=== PATIENT | male | born 1930 | race Caucasian/White ===

== ENCOUNTER 2017-06-20 03:11 | Observation (INO) ==
[2017-06-20] MEDS ORDERED: LACTATED RINGERS 1,000 ML IV ONE (03:22)
[2017-06-20] MEDS ORDERED: AMOXICILLIN/POTASSIUM CLAV 875 MG TABLET PO ONE (05:08)
--- NOTE | 2017-06-20 05:10 | Emergency Department Note ---
General Adult HPI - General Chief complaint: Bleeding Other Stated complaint: bloody emesis Time Seen by Provider: 06/20/17 05:05 Source: patient Mode of arrival: ambulatory Limitations: no limitations - History of Present Illness HPI Narrative: This patient was in bed and vomiting a slightly bloody emesis and thinks she may have aspirated. He was brought in the emergency room by ambulance and is doing fairly well but he does have aspiration on his chest x-ray and O2 saturations in the mid 80s off oxygen. He has had no more vomiting here in the emergency room - Related Data Home Medications Medication Instructions Recorded Confirmed cholecalciferol (vitamin D3) 1,000 2,000 unit PO DAILY tab 09/03/14 06/12/17 unit tablet ferrous sulfate ER 325 mg (65 mg 325 mg PO DAILY cap 09/03/14 06/12/17 iron) capsule,extended release multivitamin tablet 1 tab PO QDAY tab 09/03/14 06/12/17 bisacodyl 5 mg tablet,delayed 5 mg PO QHS 03/04/15 06/12/17 release Sennosides/Docusate Sodium [Eql 1 each PO DAILYP PRN 11/27/15 06/12/17 Stool Softener-Stim Lax Tb] aspirin 81 mg tablet,delayed 81 mg PO QDAY 03/06/17 06/12/17 release Previous Rx's Medication Instructions Recorded insulin glargine (U-100) 100 See Label Instructions SUB-Q QDAY 10/05/16 unit/mL subcutaneous solution #10 ml insulin lispro (U-100) 100 unit/mL 5 unit SUB-Q TID #3 ml 10/05/16 subcutaneous cartridge blood sugar diagnostic strips See Dose Instructions .ROUTE 12/19/16 .MEDSUPPLY #100 each blood-glucose meter See Dose Instructions .ROUTE 12/19/16 .MEDSUPPLY #1 each levothyroxine 50 mcg tablet 50 mcg PO QDAY #90 tab 02/25/17 carvedilol 6.25 mg tablet 6.25 mg PO BID 90 Days #180 tab 03/06/17 gabapentin 300 mg capsule 300 mg PO TID 90 Days #270 cap 03/06/17 tramadol 50 mg tablet 50 mg PO QID #360 tab 04/16/17 pravastatin 10 mg tablet 10 mg PO QDAY #90 tab 05/07/17 Amoxicillin/Potassium Clav 875 mg PO Q12H #14 tab 06/20/17 [Augmentin] Allergies Allergy/AdvReac Type Severity Reaction Status Date / Time Sulfa (Sulfonamide AdvReac Intermediate Gastrointestinal Verified 06/20/17 03:18 Antibiotics) Upset Review of Systems All systems ED: reviewed and negative except as stated. Past Medical History - Past Medical History [facility] Narrative: Medical History Fever of unknown origin (Acute) Bacteremia due to Gram-negative bacteria (Acute) Cholelithiasis and cholecystitis without obstruction (Resolved) Oral abscess (Chronic) Aphthous ulcer (Chronic) Vitamin D deficiency (Chronic) Peripheral neuropathy (Chronic) History of peptic ulcer (Chronic) Mononeuritis (Chronic) Mononeuritis lower limb (Chronic) Lumbago (Chronic) Ischemic cardiomyopathy (Chronic) Hypothyroidism (acquired) (Chronic) Hypotension (Chronic) Hyperlipidemia (Chronic) Hyperkalemia (Chronic) HTN (hypertension) (Chronic) Gastritis and gastroduodenitis (Chronic) Dysphagia (Chronic) Diabetes mellitus, type II (Chronic) History of colonic polyps (Chronic) CKD (chronic kidney disease), stage II (Chronic) Chronic low back pain (Chronic) CAD (coronary artery disease) (Chronic) 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) Past Surgical History History of coronary artery stent placement (Chronic) History of rhinoplasty (Chronic) History of lumbar surgery (Chronic) History of esophagogastroduodenoscopy (Chronic) History of colonoscopy (Chronic) History of cervical spinal surgery (Chronic) History of cataract surgery (Chronic) History of carpal tunnel release (Chronic) History of coronary artery bypass graft (Chronic) History of laparoscopic cholecystectomy (Acute) Family History Sister Cardiovascular disease Uknown Chronic obstructive pulmonary disease Father Gangrene Mother Gangrene Unknown History of hepatitis C virus infection Unknown Essential hypertension Sister Migraine Mother Osteoarthritis Mother Osteoporosis Medical history: Reports: coronary artery disease, DM Psychiatric history: Reports: no psych history Surgical history ED: Reports: non-contributory - Social History smoking status: Never smoker Alcohol use: Reports: None Drug use: Reports: none Physical Exam Limitations: no limitations General appearance: alert Head: atraumatic Eye: Present: normal appearance ENT: normal exam Neck: Present: normal inspection Chest: Present: normal inspection Respiratory: Present: other (Severe rhonchi in the left side of the lung tran) Cardiovascular: Present: regular rate, normal rhythm, normal heart sounds Abdominal: Present: soft. Absent: distention, tenderness Neurological: Present: alert Psychiatric: Present: normal affect, normal mood Skin: Present: warm, dry, intact Course Vital Signs Temperature 99.3 F H 06/20/17 03:12 Pulse Rate 102 H 06/20/17 03:12 Respiratory Rate 20 06/20/17 03:12 Blood Pressure 149/106 06/20/17 03:12 Pulse Oximetry (%) 99 06/20/17 03:12 Temperature 100.4 F H 06/20/17 06:29 Pulse Rate 68 06/20/17 07:42 Respiratory Rate 19 06/20/17 07:42 Blood Pressure 98/48 06/20/17 07:35 Pulse Oximetry (%) 97 06/20/17 07:42 Medical Decision Making - MDM Narrative Medical decision making narrative: This patient has had aspiration pneumonia on his x-ray. Initially thought would be able to send him home but he was hypoxic off oxygen. He initially got Augmentin 875 mg p.o. and then I gave him Levaquin 750 mg IV. He will be admitted to the hospital. - Lab Data Lab results reviewed: Yes I reviewed the patient's lab results. Result diagrams: 06/20/17 03:36 06/20/17 03:36 Lab Results 06/20/17 06/20/17 06/20/17 Range/Units 03:36 03:36 06:58 WBC 8.1 (4.5-11.0) K/mcL RBC 3.53 L (4.50-5.90) M/mcL Hgb 11.5 L (13.5-16.5) g/dL Hct 34.1 L (41.0-55.0) % MCV 96.6 (80.0-100.0) fL MCH 32.5 (26.0-34.0) pg MCHC 33.7 (31.0-36.0) g/dL RDW 14.2 (11.5-14.5) % Plt Count 178 (140-440) K/mcL MPV 8.6 (7.4-10.4) fL Gran % 85.7 H (38.0-78.0) % Lymph % (Auto) 8.5 L (15.5-49.0) % [place] % (Auto) 3.5 (1.0-12.0) % Eos % (Auto) 2.2 (0.0-7.0) % Baso % (Auto) 0.1 (0.0-2.0) % Gran # 7.0 (1.8-8.0) K/mcL Lymph # (Auto) 0.7 L (1.5-4.8) K/mcL [place] # (Auto) 0.3 (0.1-0.9) K/mcL Eos # (Auto) 0.2 (0.0-0.7) K/mcL Baso # (Auto) 0 (0.0-0.3) K/mcL VBG Lactic Acid 0.8 (0.5-2.2) mmol/L Sodium 136 (133-145) mmol/L Potassium 4.7 (3.3-5.1) mmol/L Chloride 99 (96-108) mmol/L Carbon Dioxide 23 (22-30) mmol/L Anion Gap 14.0 (8-16) BUN 20 (8-23) mg/dl Creatinine 1.2 (0.7-1.2) mg/dl GFR Calculation 54 Glucose 148 H (70-105) mg/dL Calcium 8.9 (8.6-10.4) mg/dl Total Bilirubin 0.6 (0.0-1.0) mg/dL AST 21 (0-37) U/l ALT 17 (0-40) U/l Alkaline Phosphatase 80 (39-117) U/L Total Protein 7.0 (5.9-8.4) gm/dL Albumin 4.1 (3.2-5.2) gm/dL Globulin 2.9 (2.2-3.7) gm/dL Albumin/Globulin Ratio 1.4 (1.0-2.3) - Radiology Data Radiology results reviewed: Yes I reviewed the patient's radiology results. Disposition Pt seen by [facility]MINISTRATOR/PA only: No Clinical Impression: Aspiration pneumonia Disposition: Xfer As Inpt ([facility]) Condition: Good Prescriptions: Amoxicillin/Potassium Clav [Augmentin] 875 mg PO Q12H #14 tab Referrals: David Rodney PA-C [Primary Care Provider] - Time of Disposition: 05:10
[2017-06-20] MEDS ORDERED: ACETAMINOPHEN 325 MG TABLET PO ONE (05:22)
[2017-06-20 05:51] LABS: Basophils # (Auto) 0 K/mcL (0.0-0.3); Basophils % (Auto) 0.1 % (0.0-2.0); Eosinophils # (Auto) 0.2 K/mcL (0.0-0.7); Eosinophils % (Auto) 2.2 % (0.0-7.0); Granulocytes % (Auto) 85.7 % (38.0-78.0); Lymphocytes # (Auto) 0.7 K/mcL (1.5-4.8); Lymphocytes % (Auto) 8.5 % (15.5-49.0); Mean Cell Volume 96.6 fL (80.0-100.0); Mean Corpuscular HGB Conc 33.7 g/dL (31.0-36.0); Mean Corpuscular Hemoglobin 32.5 pg (26.0-34.0); Monocytes # (Auto) 0.3 K/mcL (0.1-0.9); Monocytes % (Auto) 3.5 % (1.0-12.0); Platelet Count 178 K/mcL (140-440); RBC 3.53 M/mcL (4.50-5.90); Red Cell Distribution Width 14.2 % (11.5-14.5)
[2017-06-20 05:52] LABS: ALT/SGPT 17 U/l (0-40); Albumin 4.1 gm/dL (3.2-5.2); Albumin/Globulin Ratio 1.4 (1.0-2.3); Alkaline Phosphatase 80 U/L (39-117); Blood Urea Nitrogen 20 mg/dl (8-23)
--- NOTE | 2017-06-20 06:06 | XRay Report ---
CLINICAL INFORMATION: Shortness of breath and cough COMPARISON: 11/26/2015 FINDINGS: Moderate cardiomegaly is unchanged. Sternotomy changes again noted. Mediastinum and pulmonary vessels appear normal. Moderate patchy bibasilar infiltrates have developed. Tiny bilateral pleural effusions noted IMPRESSION: Moderate patchy bibasilar infiltrates and tiny bilateral pleural effusions suspicious for aspiration Moderate stable cardiomegaly - no evidence CHF Interpreted and Authenticated by: Dony Reagan 06/20/17
[2017-06-20] MEDS ORDERED: LEVOFLOXACIN 750 MG/150 ML BAG IV ONE (06:40)
[2017-06-20] MEDS ORDERED: 0.9 % SODIUM CHLORIDE 1,000 ML IV ONE (08:05)
[2017-06-20] MEDS ORDERED: ONDANSETRON 4 MG/2 ML VIAL IV PRN (09:41)
[2017-06-20] MEDS: PIPERACILLIN SODIUM/TAZOBACTAM 2.25 GM in DEXTROSE 5% IN WATER 50 ML IV SCH ×3 (10:00→18:16)
[2017-06-20] MEDS ORDERED: DEXTROSE 50% 50 ML VIAL IV PRN (10:53)
[2017-06-20] MEDS ORDERED: DEXTROSE 31 GM ORAL.SUSP PO PRN (10:53)
[2017-06-20] MEDS ORDERED: SENNOSIDES/DOCUSATE SODIUM 1 TAB TABLET PO PRN (11:01)
[2017-06-20] MEDS: INSULIN GLARGINE, HUMAN 1 UNIT/0.01 ML SQ SCH ×2 (11:14→23:29)
[2017-06-20] MEDS: METOCLOPRAMIDE 10 MG TABLET PO SCH ×2 (11:14→17:41)
[2017-06-20] MEDS: INSULIN LISPRO 1 UNIT/0.01 ML UNIT SQ SCH ×3 (11:15→20:53)
[2017-06-20] MEDS: GABAPENTIN 300 MG CAPSULE PO SCH ×2 (14:39→20:49)
[2017-06-20] MEDS: 0.9 % SODIUM CHLORIDE 10 ML SYRINGE IV SCH (14:40)
[2017-06-20] MEDS: traMADol 50 MG TABLET PO PRN (14:46)
[2017-06-20] MEDS: CARVEDILOL 6.25 MG TABLET PO SCH (17:41)
--- NOTE | 2017-06-20 20:43 | Internal Med History&Physical ---
Medical - H&P: HPI Patient information: Note initiated : 06/20/17 at 8:33 pm Service Date, if different from initiated Date: [] Patient: Goyo Roca 86 y/o M admitted on 06/20/17 for Bloody Emesis. History of present illness: Mr. Roca is a 86 year old M who presented by way of EMS after he had a large emesis early this morning during awakening while still in supine position. Patient denies any prodromes. Currently, feels fine, denies any coughing, SOB or nausea. He is otherwise in good health. ED: Patient was diagnosed with aspiration pneumonia and was going to be discharged home on Augmentin, but O2 sats on RA was around 88% only. All systems: reviewed and no additional remarkable complaints except as stated ( as stated in HPI) Medical - H&P: PMH Medical history: Medical History Fever of unknown origin (Acute) Bacteremia due to Gram-negative bacteria (Acute) Cholelithiasis and cholecystitis without obstruction (Resolved) Oral abscess (Chronic) Aphthous ulcer (Chronic) Vitamin D deficiency (Chronic) Peripheral neuropathy (Chronic) History of peptic ulcer (Chronic) Mononeuritis (Chronic) Mononeuritis lower limb (Chronic) Lumbago (Chronic) Ischemic cardiomyopathy (Chronic) Hypothyroidism (acquired) (Chronic) Hypotension (Chronic) Hyperlipidemia (Chronic) Hyperkalemia (Chronic) HTN (hypertension) (Chronic) Gastritis and gastroduodenitis (Chronic) Dysphagia (Chronic) Diabetes mellitus, type II (Chronic) History of colonic polyps (Chronic) CKD (chronic kidney disease), stage II (Chronic) Chronic low back pain (Chronic) CAD (coronary artery disease) (Chronic) 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 Has 6 children Functional capacity: independent ambulation Smoking status: Never smoker Drug use: none Alcohol use: none Medical - H&P: Meds Home Medications Medication Instructions Recorded Confirmed Type cholecalciferol (vitamin D3) 1,000 2,000 unit PO DAILY tab 09/03/14 06/20/17 History unit tablet ferrous sulfate ER 325 mg (65 mg 325 mg PO DAILY cap 09/03/14 06/20/17 History iron) capsule,extended release multivitamin tablet 1 tab PO QDAY tab 09/03/14 06/20/17 History bisacodyl 5 mg tablet,delayed 5 mg PO QHS 03/04/15 06/20/17 History release Sennosides/Docusate Sodium [Eql 1 each PO DAILYP PRN 11/27/15 06/20/17 History Stool Softener-Stim Lax Tb] insulin glargine (U-100) 100 See Label Instructions SUB-Q QDAY 10/05/16 Rx unit/mL subcutaneous solution #10 ml levothyroxine 50 mcg tablet 50 mcg PO QDAY #90 tab 02/25/17 06/20/17 Rx aspirin 81 mg tablet,delayed 81 mg PO QDAY 03/06/17 06/20/17 History release carvedilol 6.25 mg tablet 6.25 mg PO BID 90 Days #180 tab 03/06/17 06/20/17 Rx gabapentin 300 mg capsule 300 mg PO TID 90 Days #270 cap 03/06/17 06/20/17 Rx tramadol 50 mg tablet 50 mg PO QID #360 tab 04/16/17 06/20/17 Rx pravastatin 10 mg tablet 10 mg PO QDAY #90 tab 05/07/17 06/20/17 Rx Amoxicillin/Potassium Clav 875 mg PO Q12H #14 tab 06/20/17 Rx [Augmentin] insulin lispro 100 unit/mL See Protocol SUB-Q TID 06/20/17 06/20/17 History subcutaneous cartridge Allergies Allergy/AdvReac Type Severity Reaction Status Date / Time Sulfa (Sulfonamide AdvReac Intermediate Gastrointestinal Verified 06/20/17 03:18 Antibiotics) Upset Medical - H&P: Exam - Constitutional Vitals: Temp Pulse Resp BP Pulse Ox 98.7 F 72 18 106/59 98 06/20/17 19:53 06/20/17 19:53 06/20/17 19:53 06/20/17 19:53 06/20/17 19:53 General appearance: average body habitus - Head Head exam: Present: normal inspection - Respiratory Respiratory exam: Present: normal respiratory exam - Cardiovascular Cardiovascular exam: Present: normal rate and rhythm - GI/Abdominal GI/Abdominal exam: Present: normal bowel sounds, soft - Extremities Exam Extremities exam: Present: normal inspection Medical - H&P: Reslt - Labs CBC & Chem 7: 06/20/17 03:36 06/20/17 03:36 Labs: Short CBC 06/20/17 Range/Units 03:36 WBC 8.1 (4.5-11.0) K/mcL Hgb 11.5 L (13.5-16.5) g/dL Hct 34.1 L (41.0-55.0) % Plt Count 178 (140-440) K/mcL BMP 06/20/17 03:36 Sodium 136 Potassium 4.7 Chloride 99 Carbon Dioxide 23 BUN 20 Creatinine 1.2 Glucose 148 H Calcium 8.9 Liver Function 06/20/17 Range/Units 03:36 Total Bilirubin 0.6 (0.0-1.0) mg/dL AST 21 (0-37) U/l ALT 17 (0-40) U/l Alkaline Phosphatase 80 (39-117) U/L Albumin 4.1 (3.2-5.2) gm/dL Medical - H&P: A/P - Narrative A/P Narrative: 86-year-old admitted with following problems: + Hypoxia, probably due to aspiration pneumonitis + Bilateral infiltrates, dd aspiration pneumonia Empiric treatment started with Zosyn + Diabetes mellitus Continue insulin regimen + Gastroparesis With recurrent symptoms will start trial with reglan + CAD Continue carvedilol, statin DVT prophylaxis: ambulation Code status: FULL
[2017-06-20] MEDS ORDERED: SIMVASTATIN 10 MG TABLET PO SCH (21:00)
[2017-06-20] MEDS ORDERED: BISACODYL 5 MG TABLET PO SCH (21:00)
[2017-06-21] MEDS: PIPERACILLIN SODIUM/TAZOBACTAM 2.25 GM in DEXTROSE 5% IN WATER 50 ML IV SCH ×3 (00:30→12:19)
[2017-06-21] MEDS: 0.9 % SODIUM CHLORIDE 10 ML SYRINGE IV SCH ×3 (00:30→12:23)
[2017-06-21] MEDS ORDERED: LEVOTHYROXINE 50 MCG TABLET PO SCH (07:30)
[2017-06-21] MEDS: METOCLOPRAMIDE 10 MG TABLET PO SCH ×2 (07:39→11:21)
[2017-06-21] MEDS: INSULIN LISPRO 1 UNIT/0.01 ML UNIT SQ SCH ×2 (07:42→11:55)
[2017-06-21] MEDS ORDERED: FERROUS SULFATE 325 MG TABLET PO SCH (08:00)
[2017-06-21] MEDS: CARVEDILOL 6.25 MG TABLET PO SCH (08:26)
[2017-06-21] MEDS: INSULIN GLARGINE, HUMAN 1 UNIT/0.01 ML SQ SCH (08:26)
[2017-06-21] MEDS: GABAPENTIN 300 MG CAPSULE PO SCH ×2 (08:26→16:40)
[2017-06-21] MEDS: traMADol 50 MG TABLET PO PRN (08:32)
[2017-06-21] MEDS ORDERED: ASPIRIN 81 MG TAB.CHEW PO SCH (09:00)
[2017-06-21] MEDS ORDERED: VITAMIN D3 1,000 UNIT TABLET PO SCH (09:00)
--- NOTE | 2017-06-21 11:16 | Discharge Summary ---
Medical - DS: Prov Patient information: Note initiated : 06/21/17 at 11:01 am Service Date, if different from initiated Date: [] Patient: Goyo Roca 86 y/o M admitted on 06/20/17 for Bloody Emesis/ Pneumonia. Date of admission: 06/20/17 09:32 Discharge date: 06/21/17 Primary care physician: David Rodney Consults: 06/20/17 07:39 Consult to Physician [CONS] Stat Comment: Consulting Provider: Jennifer Lee Reason For Exam: Physician to Consult Medical - DS: Meds - Discharge Medications Prescriptions: Amoxicillin/Potassium Clav [Augmentin] 875 mg PO Q12H #14 tab Active and Home Medications: Home Medications cholecalciferol (vitamin D3) 1,000 unit tablet 2,000 unit PO DAILY tab [History Confirmed 06/20/17 Last Taken 06/19/17 07:00] ferrous sulfate ER 325 mg (65 mg iron) capsule,extended release 325 mg PO DAILY cap 09/03/14 [History Confirmed 06/20/17 Last Taken 06/19/17 07:00] multivitamin tablet 1 tab PO QDAY tab 09/03/14 [History Confirmed 06/20/17 Last Taken 06/19/17 07:00] bisacodyl 5 mg tablet,delayed release 5 mg PO QHS 03/04/15 [History Confirmed Last Taken 06/19/17 20:00] Sennosides/Docusate Sodium [Eql Stool Softener-Stim Lax Tb] 1 each PO DAILYP PRN 11/27/15 [History Confirmed 06/20/17 Last Taken 06/19/17 07:00] insulin glargine (U-100) 100 unit/mL subcutaneous solution See Label Instructions SUB-Q QDAY #10 ml 10/05/16 [Rx Confirmed 06/20/17 Last Taken 21:00] levothyroxine 50 mcg tablet 50 mcg PO QDAY #90 tab 02/25/17 [Rx Confirmed Last Taken 06/19/17 07:00] aspirin 81 mg tablet,delayed release 81 mg PO QDAY 03/06/17 [History Confirmed 06/20/17 Last Taken 06/19/17 07:00] carvedilol 6.25 mg tablet 6.25 mg PO BID 90 Days #180 tab 03/06/17 [Rx Confirmed 06/20/17 Last Taken 06/19/17 07:00] gabapentin 300 mg capsule 300 mg PO TID 90 Days #270 cap 03/06/17 [Rx Confirmed 06/20/17 Last Taken 06/19/17 20:00] tramadol 50 mg tablet 50 mg PO QID #360 tab 04/16/17 [Rx Confirmed 06/20/17 Last Taken 06/19/17 20:00] pravastatin 10 mg tablet 10 mg PO QDAY #90 tab 05/07/17 [Rx Confirmed 06/20/17 Last Taken 06/19/17 07:00] Amoxicillin/Potassium Clav [Augmentin] 875 mg PO Q12H #14 tab 06/20/17 [Rx Last Taken Unknown] insulin lispro 100 unit/mL subcutaneous cartridge See Protocol SUB-Q TID [History Confirmed 06/20/17 Last Taken 06/19/17 20:00] Medical - DS: Hosp Hospital course: Mr. Roca is a 86 year old M who presented by way of EMS after he had a large emesis early this morning during awakening while still in supine position. Patient denies any prodromes. Currently, feels fine, denies any coughing, SOB or nausea. He is otherwise in good health. ED: Patient was diagnosed with aspiration pneumonia and was going to be discharged home on Augmentin, but O2 sats on RA was around 88% only. Hospital Course: Patient has remained afebrile during his hospital stay. He has had no nausea, or emesis, coughing or pleuritic pain. O2 sats on room air have remained well above 90% for the last 24 hours. He will be discharged home on Augmentin for presumed aspiration pneumonia. No changes were made in his home meds. Discharge diagnosis: Aspiration pneumonia Secondary discharge diagnosis: Vitamin D deficiency (Chronic) Peripheral neuropathy (Chronic) History of peptic ulcer (Chronic) Mononeuritis (Chronic) Mononeuritis lower limb (Chronic) Lumbago (Chronic) Ischemic cardiomyopathy (Chronic) Hypothyroidism (acquired) (Chronic) Hypotension (Chronic) Hyperlipidemia (Chronic) Hyperkalemia (Chronic) HTN (hypertension) (Chronic) Gastritis and gastroduodenitis (Chronic) Dysphagia (Chronic) Diabetes mellitus, type II (Chronic) History of colonic polyps (Chronic) CKD (chronic kidney disease), stage II (Chronic) Chronic low back pain (Chronic) CAD (coronary artery disease) (Chronic) 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) Reason for admission: Hypoxia, aspiration pneumonia Pertinent studies/significant findings: CXR: IMPRESSION: Moderate patchy bibasilar infiltrates and tiny bilateral pleural effusions suspicious for aspiration Moderate stable cardiomegaly - no evidence CHF - Time Spent with Patient Total time spent providing and/or coordinating discharge services: Less than 30 minutes Medical - DS: Exam - Constitutional Vitals: Vital Signs Temp Pulse Resp BP Pulse Ox 06/21/17 10:56 98.1 F 16 126/86 98 06/21/17 07:53 16 97 06/21/17 07:42 16 97 06/21/17 06:31 98.9 F 18 118/57 97 06/21/17 04:00 97.6 F 76 18 113/74 96 06/21/17 00:00 98.9 F 64 18 126/56 99 06/20/17 19:53 98.7 F 72 18 106/59 98 06/20/17 16:00 98.0 F 72 18 105/57 97 06/20/17 12:00 98.3 F 70 18 99/52 97 Intake and Output 06/20/17 06/21/17 06/21/17 21:59 05:59 13:59 Intake Total 100 / 100 450 / 450 120 / 120 Balance 100 / 100 450 / 450 120 / 120 Intake: IV 100 / 100 50 / 50 Zosyn 2.25 gm In Dextrose 5% in 100 / 100 50 / 50 Water 50 ml @ 100 mls/hr IV Q6H [facility] Rx#:[id number] Oral 400 / 400 120 / 120 Other: Meal Breakfast Percent of Meal Consumed 75% Feeding Ability Independent # Voids 1 Weight 168 lb Medical - DS: Data Labs on day of discharge: Preliminary micro results at discharge 06/20/17 05:59 Blood Culture - Preliminary Blood 06/20/17 05:49 Blood Culture - Preliminary Blood Medical - DS: A/P - Patient/Caregiver Discharge Instructions Activity: increase activity as tolerated Diet: Consistent Carbohydrate Additional Instructions: NEW MEDICATION IS AUGMENTIN FOR THE LUNG INFECTION. OTHERWISE, CONTINUE HOME MEDS WITHOUT CHANGES. Prescriptions: Amoxicillin/Potassium Clav [Augmentin] 875 mg PO Q12H #14 tab - Follow up Plan Follow up with: David Rodney PA-C [Primary Care Provider] - Disposition: Home, Self-Care Prognosis: Fair Rehab Potential: Good Overall status at discharge: patient is back to baseline
== END 2017-06-21 17:05 | disposition home or self-care (01) ==
LOC: MEDSUR 03:11 → ED 03:11 → MEDSUR 09:30
PROVIDERS: ADMIT Specialist; ATTEND Specialist

== ENCOUNTER 2019-10-29 15:37 | Observation (INO) ==
[2019-10-29] MEDS ORDERED: 0.9 % SODIUM CHLORIDE 1,000 ML IV ONE (15:52)
--- NOTE | 2019-10-29 16:16 | Emergency Department Note ---
HPI General Chief complaint: Blood Sugar Problem Stated complaint: High blood sugar, 261 at 1400 Time Seen by Provider: 10/29/19 15:43 Source: patient and family Mode of arrival: ambulatory Limitations: no limitations History of Present Illness HPI Narrative: Narrative: Patient presents emergency department for elevated blood sugar. He was in the 260s at home. He did take insulin prior to coming to the emergency department. He has had diarrhea today. No abdominal pain. No fever. No vomiting. No other complaints. Related Data Home Medications Medication Instructions Recorded Confirmed cholecalciferol (vitamin D3) 25 2,000 unit PO DAILY tab 09/03/14 10/26/19 mcg (1,000 unit) tablet ferrous sulfate 325 mg (65 mg 325 mg PO DAILY cap 09/03/14 10/26/19 iron) capsule,extended release multivitamin 1 tab PO QDAY tab 09/03/14 10/26/19 bisacodyl 5 mg tablet,delayed 5 mg PO QHS 03/04/15 10/26/19 release sennosides-docusate sodium 1 each PO DAILYP PRN 11/27/15 10/26/19 aspirin 81 mg tablet,delayed 81 mg PO QDAY 03/06/17 10/26/19 release apixaban 5 mg tablet 10 mg PO QDAY tab 06/19/19 10/26/19 carvedilol 6.25 mg tablet 6.25 mg PO BID 06/19/19 10/26/19 gabapentin 300 mg capsule 300 mg PO .unknown cap 06/19/19 10/26/19 tramadol 50 mg tablet 50 mg PO .unknown tab 06/19/19 10/26/19 Previous Rx's Medication Instructions Recorded levothyroxine 50 mcg tablet 50 mcg PO QDAY #90 tab 08/13/17 fluoxetine 20 mg capsule 20 mg PO QAM #90 cap 09/12/17 insulin glargine 100 unit/mL See Rx Instructions SUB-Q QDAY #10 09/12/17 subcutaneous solution ml blood-glucose meter #1 each 10/01/17 pravastatin 10 mg tablet 10 mg PO QDAY #90 tab 10/21/17 insulin lispro 100 unit/mL 4 unit SUB-Q ACHS #300 unit 11/11/17 subcutaneous solution hydrocodone 5 mg-acetaminophen 325 1 tab PO BID PRN #60 tab 11/15/17 mg tablet omeprazole 20 mg PO ACB #30 cap 08/19/18 Allergies Allergy/AdvReac Type Severity Reaction Status Date / Time Sulfa (Sulfonamide AdvReac Intermediate Gastrointestinal Verified 08/19/18 17:26 Antibiotics) Upset Review of Systems ROS ROS Narrative: Narrative: As above, all other system reviewed and negative. 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, lumbosacral region (Chronic) Fall (Acute) Scalp hematoma (Acute) Radial styloid fracture (Acute) Aspiration pneumonia (Acute) Hx laparoscopic cholecystectomy (Chronic) Cirrhosis of liver without ascites (Chronic) History of laparoscopic cholecystectomy (Acute) Fever of unknown origin (Acute) Bacteremia due to Gram-negative bacteria (Acute) Oral abscess (Chronic) Aphthous ulcer (Chronic) History of coronary artery stent placement (Chronic) History of rhinoplasty (Chronic) History of lumbar surgery (Chronic) History of esophagogastroduodenoscopy (Chronic) History of colonoscopy (Chronic) History of cervical spinal surgery (Chronic) History of cataract surgery (Chronic) History of carpal tunnel release (Chronic) History of coronary artery bypass graft (Chronic) Vitamin D deficiency (Chronic) Peripheral neuropathy (Chronic) History of peptic ulcer (Chronic) Mononeuritis (Chronic) Mononeuritis lower limb (Chronic) Lumbago (Chronic) Ischemic cardiomyopathy (Chronic) Hypothyroidism (acquired) (Chronic) Hypotension (Chronic) Hyperlipidemia (Chronic) Hyperkalemia (Chronic) HTN (hypertension) (Chronic) Gastritis and gastroduodenitis (Chronic) Dysphagia (Chronic) Diabetes mellitus, type II (Chronic) History of colonic polyps (Chronic) CKD (chronic kidney disease), stage II (Chronic) Chronic low back pain (Chronic) CAD (coronary artery disease) (Chronic) 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) Medical History 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) Aphthous ulcer (Chronic) Bacteremia due to Gram-negative bacteria (Acute) 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 urinary tract symptoms (Chronic) CAD (coronary artery disease) (Chronic) post CABG 5 vessel bypass Cholelithiasis and cholecystitis without obstruction (Resolved) Chronic low back pain (Chronic) CKD (chronic kidney disease), stage II (Chronic) 08/27/2011 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) Diabetes (Chronic) Diabetes mellitus, type II (Chronic) Dysphagia (Chronic) 06/23/2104-Shani Fever of unknown origin (Acute) Gastritis and gastroduodenitis (Chronic) H/O meningitis (Chronic) H/O sleep apnea (Chronic) 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) History of colonic polyps (Chronic) History of peptic ulcer (Chronic) 05/14/2014 HTN (hypertension) (Chronic) Hypercholesteremia (Chronic) Hyperkalemia (Chronic) Hyperlipidemia (Chronic) Hypotension (Chronic) Hypothyroidism (acquired) (Chronic) Ischemic cardiomyopathy (Chronic) Lumbago (Chronic) Mononeuritis (Chronic) ARM Mononeuritis lower limb (Chronic) neuropathy Oral abscess (Chronic) Peripheral neuropathy (Chronic) Personal history of other diseases of the circulatory system (Chronic) 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 Radiculopathy, 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, 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, lumbosacral region (Chronic) Vitamin D deficiency (Chronic) Surgical History History of carpal tunnel release (Chronic) 04/09/2013 right History of cataract surgery (Chronic) 9024-8046 History of cervical spinal surgery (Chronic) 1976 History of colonoscopy (Chronic) 06/22/2014 dr Mcleod--TA/HP History of coronary artery bypass graft (Chronic) 2000 5 vessel bypass and stent History of coronary artery stent placement (Chronic) 2001 History of esophagogastroduodenoscopy (Chronic) 06/23/2014 -Shani History of laparoscopic cholecystectomy (Acute) 11/26/2015 History of lumbar surgery (Chronic) fusion at two levels History of rhinoplasty (Chronic) 1997 History of surgery (Chronic) 06/11 MBB #1 Bilat L3-S1 w/o sed 06/03/1902/02 LESI #1 L1-2 w/o sed 01-29-1111/02 RFTC, Lumbar, Left w/sed 11-21-1011/02 RFTC, Lumbar on the right w/sed 11-06-1010/02 MBB lumbar w/o sed 10-16-10 Family History Sister Cardiovascular disease Uknown Chronic obstructive pulmonary disease Father Gangrene father at 40 yrs and mother at 81 years of age Mother Gangrene Unknown History of hepatitis C virus infection Unknown Essential hypertension Sister Migraine Mother Osteoarthritis NOS Mother Osteoporosis Social History Smoking Status: Never smoker Alcohol Intake Frequency: does not drink Substance Use: does not use Exam Narrative Narrative: Narrative: Vital signs reviewed, please see nursing documentation General Limitations: no limitations General appearance: alert Head Head: atraumatic, normocephalic and normal inspection Eye Eye: Present normal appearance, PERRL and EOMI ENT ENT: Present normal exam Neck Neck: Present normal inspection Respiratory Respiratory: Absent respiratory distress Extremities Extremities: Present normal inspection Neurological Neurological: Present alert, oriented X3 and CN II-XII intact; Absent motor sensory deficit Psychiatric Psychiatric: Present normal affect Skin Skin: Present warm Course Vital Signs Vital signs: Vital Signs Temperature 97.5 F 10/29/19 15:38 Pulse Rate 82 10/29/19 15:38 Respiratory Rate 18 10/29/19 15:38 Blood Pressure 79/53 10/29/19 15:38 Pulse Oximetry (%) 97 10/29/19 15:38 Temperature 97.5 F 10/29/19 15:38 Pulse Rate 74 10/29/19 18:36 Respiratory Rate 16 10/29/19 18:36 Blood Pressure 119/59 10/29/19 18:36 Pulse Oximetry (%) 99 10/29/19 18:36 MDM MDM Narrative Medical decision making narrative: Narrative: Patient is hydrated with IV flui ds. I spoke with Dr. Swain on-call hospitalist. Case reviewed in detail over the phone. Hospitalist agreed with admission and requested a renal ultrasound be obtained. Taker Off Hemp Fiber reports that patient has thinning to the renal cortex and renal cysts. Discussed findings with patient and family. Their questions were answered. They are agreeable with the plan. Lab Data Result diagrams: 10/29/19 15:53 10/29/19 15:53 Labs: Lab Results 10/29/19 10/29/19 Range/Units 15:53 15:53 WBC 6.6 (4.50-11.00) K/mcL RBC 3.69 L (4.63-6.08) M/mcL Hgb 11.9 L (13.7-17.5) g/dL Hct 35.3 L (40.1-51.0) % MCV 95.7 (80.0-100.0) fL MCH 32.2 (26.0-34.0) pg MCHC 33.7 (31.0-36.0) g/dL RDW 11.5 (11.5-14.5) % Plt Count 237 (140-440) K/mcL MPV 9.9 (7.4-10.4) fL Gran % 54.1 (38.0-78.0) % Lymph % (Auto) 33.0 (15.5-49.0) % [place] % (Auto) 12.2 H (1.0-12.0) % Eos % (Auto) 0.5 (0.0-7.0) % Baso % (Auto) 0.2 (0.0-2.0) % Gran # 3.60 (1.80-8.00) K/mcL Lymph # (Auto) 2.19 (1.50-4.80) K/mcL [place] # (Auto) 0.81 (0.10-0.90) K/mcL Eos # (Auto) 0.03 (0.00-0.70) K/mcL Baso # (Auto) 0.01 (0.00-0.30) K/mcL Sodium 132 L (133-145) mmol/L Potassium 4.1 (3.3-5.1) mmol/L Chloride 98 (96-108) mmol/L Carbon Dioxide 19 L (22-30) mmol/L Anion Gap 15.0 (8-16) BUN 37 H (8-23) mg/dl Creatinine 2.0 H (0.7-1.2) mg/dl GFR Calculation 29 Glucose 174 H (70-105) mg/dL Calcium 9.3 (8.6-10.4) mg/dl Discharge Plan Patient/Caregiver Discharge Instructions Pt seen by P[employer]DERED [employer]AL SUPERVISOR/PA only: No Clinical Impression: Acute renal failure (ARF) Patient Disposition: Xfer As Inpt ([facility]) Follow up with: Jn Guzman MD [Primary Care Provider] - Prescriptions: No Action levothyroxine 50 mcg tablet 50 mcg PO QDAY Qty: 90 RF: 1 (DME) blood-glucose meter [[employer]] misc See Dose Instructions .ROUTE .MEDSUPPLY Qty: 1 RF: 0 pravastatin 10 mg tablet 10 mg PO QDAY Qty: 90 RF: 1 insulin lispro 100 unit/mL solution 4 unit SUB-Q ACHS Qty: 300 RF: 0 hydrocodone-acetaminophen 5-325 mg tablet 1 tab PO BID PRN (Reason: pain) Qty: 60 RF: 0 multivitamin tablet 1 tab PO QDAY RF: 0 cholecalciferol (vitamin D3) 1,000 unit tablet 2,000 unit PO DAILY RF: 0 ferrous sulfate 325 mg (65 mg iron) capsule, extended release 325 mg PO DAILY RF: 0 Eliquis 5 mg tablet 10 mg PO QDAY RF: 0 gabapentin 300 mg capsule 300 mg PO .unknown RF: 0 tramadol 50 mg tablet 50 mg PO .unknown RF: 0 carvedilol 6.25 mg tablet 6.25 mg PO BID RF: 0 bisacodyl 5 mg tablet,delayed release (DR/EC) 5 mg PO QHS RF: 0 aspirin [Adult Low Dose Aspirin] 81 mg tablet,delayed release (DR/EC) 81 mg PO QDAY RF: 0 fluoxetine 20 mg capsule 20 mg PO QAM Qty: 90 RF: 1 insulin glargine 100 unit/mL solution See Rx Instructions SUB-Q QDAY Qty: 10 RF: 1 sennosides-docusate sodium 1 EACH tablet 1 each PO DAILYP PRN (Reason: Constipation) RF: 0 omeprazole 20 MG capsule 20 mg PO ACB Qty: 30 RF: 0
[2019-10-29 17:04] LABS: Basophils # (Auto) 0.01 K/mcL (0.00-0.30); Basophils % (Auto) 0.2 % (0.0-2.0); Eosinophils # (Auto) 0.03 K/mcL (0.00-0.70); Eosinophils % (Auto) 0.5 % (0.0-7.0); Granulocytes % (Auto) 54.1 % (38.0-78.0); Hematocrit 35.3 % (40.1-51.0); Hemoglobin 11.9 g/dL (13.7-17.5); Lymphocytes # (Auto) 2.19 K/mcL (1.50-4.80); Mean Cell Volume 95.7 fL (80.0-100.0); Mean Corpuscular HGB Conc 33.7 g/dL (31.0-36.0); Mean Platelet Volume 9.9 fL (7.4-10.4); Monocytes # (Auto) 0.81 K/mcL (0.10-0.90); Monocytes % (Auto) 12.2 % (1.0-12.0); Platelet Count 237 K/mcL (140-440); RBC 3.69 M/mcL (4.63-6.08); Red Cell Distribution Width 11.5 % (11.5-14.5); WBC 6.6 K/mcL (4.50-11.00)
[2019-10-29 17:10] LABS: Blood Urea Nitrogen 37 mg/dl (8-23); Calcium 9.3 mg/dl (8.6-10.4); Carbon Dioxide 19 mmol/L (22-30); Chloride 98 mmol/L (96-108); Glomerular Filtration Rate 29; Glucose 174 mg/dL (70-105)
[2019-10-29] MEDS ORDERED: 0.9 % SODIUM CHLORIDE 500 ML IV ONE (18:11)
--- NOTE | 2019-10-29 18:31 | Internal Med History&Physical ---
HPI History of Present Illness Patient information: Note initiated : 10/29/19 at 6:31 pm Service Date, if different from initiated Date: [] Patient: Goyo Roca a 89 y/o M admitted on for High blood sugar, 261 at 1400. Chief Complaint: Diarrhea, elevated blood sugars and weakness History of present illness: Mr. Roca is a 89 year old M with a history of DM type II/ischemic cardiomyopathy/CKD stage II who presents to the ER due to elevated blood sugars and diarrhea. Work-up was consistent with elevated creatinine at 2. Patient received crystalloids. Blood sugars improved after patient self-administered insulin. Hospital service was consulted for admission in light of acute renal failure. Renal ultrasound was ordered, UA pending At the time evaluation patient is alert and oriented. His sick contacts of leg symptoms. Denies NSAID intake. Endorses history as above. Denies chest pain, palpitation, shortness of breath fever chills or headache. Review of systems 10 point review system was performed and is negative except for ones cussed above [facility] Medical History 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) Aphthous ulcer (Chronic) Bacteremia due to Gram-negative bacteria (Acute) 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 urinary tract symptoms (Chronic) CAD (coronary artery disease) (Chronic) post CABG 5 vessel bypass Cholelithiasis and cholecystitis without obstruction (Resolved) Chronic low back pain (Chronic) CKD (chronic kidney disease), stage II (Chronic) 08/27/2011 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) Diabetes (Chronic) Diabetes mellitus, type II (Chronic) Dysphagia (Chronic) 06/23/2104-[facility]cleod Fever of unknown origin (Acute) Gastritis and gastroduodenitis (Chronic) H/O meningitis (Chronic) H/O sleep apnea (Chronic) 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) History of colonic polyps (Chronic) History of peptic ulcer (Chronic) 05/14/2014 HTN (hypertension) (Chronic) Hypercholesteremia (Chronic) Hyperkalemia (Chronic) Hyperlipidemia (Chronic) Hypotension (Chronic) Hypothyroidism (acquired) (Chronic) Ischemic cardiomyopathy (Chronic) Lumbago (Chronic) Mononeuritis (Chronic) ARM Mononeuritis lower limb (Chronic) neuropathy Oral abscess (Chronic) Peripheral neuropathy (Chronic) Personal history of other diseases of the circulatory system (Chronic) 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 Radiculopathy, 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, 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, lumbosacral region (Chronic) Vitamin D deficiency (Chronic) Surgical History History of carpal tunnel release (Chronic) 04/09/2013 right History of cataract surgery (Chronic) 3314-4763 History of cervical spinal surgery (Chronic) 1975 History of colonoscopy (Chronic) 06/22/2014 dr Mcleod--TA/HP History of coronary artery bypass graft (Chronic) 2000 5 vessel bypass and stent History of coronary artery stent placement (Chronic) 2001 History of esophagogastroduodenoscopy (Chronic) 06/23/2014 -Shani History of laparoscopic cholecystectomy (Acute) 11/26/2015 History of lumbar surgery (Chronic) fusion at two levels History of rhinoplasty (Chronic) 1997 History of surgery (Chronic) 06/11 MBB #1 Bilat L3-S1 w/o sed 06/03/1902/02 LESI #1 L1-2 w/o sed 01-29-1111/02 RFTC, Lumbar, Left w/sed 11-21-1011/02 RFTC, Lumbar on the right w/sed 11-06-1010/02 MBB lumbar w/o sed 10-16-10 Family History Sister Cardiovascular disease Uknown Chronic obstructive pulmonary disease Father Gangrene father at 40 yrs and mother at 81 years of age Mother Gangrene Unknown History of hepatitis C virus infection Unknown Essential hypertension Sister Migraine Mother Osteoarthritis NOS Mother Osteoporosis Social History (Updated 09/12/17 @ 11:55 by David Rodney PA-C) marital status: education level: college occupational status: retired occupation: [employer] other: 6 CHILDREN AND 1 GRANDCHILD smoking status: Never smoker alcohol intake frequency: does not drink substance use type: does not use MEDS/ALLERGIES Home Medications and Allergies Home Medications Medication Instructions Recorded Confirmed Type cholecalciferol (vitamin D3) 25 2,000 unit PO DAILY tab 09/03/14 10/26/19 History mcg (1,000 unit) tablet ferrous sulfate 325 mg (65 mg 325 mg PO DAILY cap 09/03/14 10/26/19 History iron) capsule,extended release multivitamin 1 tab PO QDAY tab 09/03/14 10/26/19 History bisacodyl 5 mg tablet,delayed 5 mg PO QHS 03/04/15 10/26/19 History release sennosides-docusate sodium 1 each PO DAILYP PRN 11/27/15 10/26/19 History aspirin 81 mg tablet,delayed 81 mg PO QDAY 03/06/17 10/26/19 History release levothyroxine 50 mcg tablet 50 mcg PO QDAY #90 tab 08/13/17 10/26/19 Rx fluoxetine 20 mg capsule 20 mg PO QAM #90 cap 09/12/17 10/26/19 Rx insulin glargine 100 unit/mL See Rx Instructions SUB-Q QDAY #10 09/12/17 10/26/19 Rx subcutaneous solution ml blood-glucose meter #1 each 10/01/17 10/26/19 Rx pravastatin 10 mg tablet 10 mg PO QDAY #90 tab 10/21/17 10/26/19 Rx insulin lispro 100 unit/mL 4 unit SUB-Q ACHS #300 unit 11/11/17 10/26/19 Rx subcutaneous solution hydrocodone 5 mg-acetaminophen 325 1 tab PO BID PRN #60 tab 11/15/17 10/26/19 Rx mg tablet omeprazole 20 mg PO ACB #30 cap 08/19/18 10/26/19 Rx apixaban 5 mg tablet 10 mg PO QDAY tab 06/19/19 10/26/19 History carvedilol 6.25 mg tablet 6.25 mg PO BID 06/19/19 10/26/19 History gabapentin 300 mg capsule 300 mg PO .unknown cap 06/19/19 10/26/19 History tramadol 50 mg tablet 50 mg PO .unknown tab 06/19/19 10/26/19 History Allergies Allergy/AdvReac Type Severity Reaction Status Date / Time Sulfa (Sulfonamide AdvReac Intermediate Gastrointestinal Verified 08/19/18 17:26 Antibiotics) Upset EXAM Constitutional Vitals: Alert oriented Head normocephalic Oral cavity moist No ear nose discharge Eye movement symmetrical Neck supple no lymphadenopathy S1-S2 occasionally irregular Nonlabored breathing Nondistended nontender abdomen Lower extremity no cyanosis clubbing or joint swelling Skin no suspicious lesion Psych anxious but alert cooperative Neuro normal higher function Temp Pulse Resp BP Pulse Ox 97.5 F 67 18 113/61 99 10/29/19 15:38 10/29/19 17:55 10/29/19 15:38 10/29/19 17:55 10/29/19 17:55 DATA Data Completed and Pending Labs on day of discharge: Labs from last 24 hours 10/29/19 10/29/19 15:53 15:53 WBC 6.6 RBC 3.69 L Hgb 11.9 L Hct 35.3 L MCV 95.7 MCH 32.2 MCHC 33.7 RDW 11.5 Plt Count 237 MPV 9.9 Gran % 54.1 Lymph % (Auto) 33.0 [place] % (Auto) 12.2 H Eos % (Auto) 0.5 Baso % (Auto) 0.2 Gran # 3.60 Lymph # (Auto) 2.19 [place] # (Auto) 0.81 Eos # (Auto) 0.03 Baso # (Auto) 0.01 Sodium 132 L Potassium 4.1 Chloride 98 Carbon Dioxide 19 L Anion Gap 15.0 BUN 37 H Creatinine 2.0 H GFR Calculation 29 Glucose 174 H Calcium 9.3 A/P Narrative A/P Narrative: * Acute renal failure likely secondary to volume depletion/prerenal. Start crystalloids and monitor renal function. Avoid nephrotoxins. Renal ultrasound/UA * Diarrhea check send stool studies. Crystalloid/supportive management * History of DM type II continue basal prandial insulin/CCD * Ischemic cardiomyopathy continue Coreg/aspirin/statin * Anxiety disorder continue fluoxetine * Neuropathy continue gabapentin * GERD continue PPI * hypothyroidism continue thyroxine * Chronic pain on hydrocodone/tramadol * Prophylaxis on anticoagulation Plan * Observation admission * Renal ultrasound/UA * Crystalloids * Stool studies * Pre-existing medical condition management as above Full code Time Spent With Patient Time: Total time spent is greater than 50% in coordination of care (as doc umented) at patient's floor/unit and/or counseling patient:
[2019-10-29] MEDS ORDERED: BISACODYL 10 MG SUPP.RECT PR PRN (20:26)
[2019-10-29] MEDS ORDERED: ACETAMINOPHEN 325 MG TABLET PO PRN (20:26)
[2019-10-29] MEDS ORDERED: DEXTROSE 31 GM ORAL.SUSP PO PRN (20:26)
[2019-10-29] MEDS ORDERED: DEXTROSE 50% 50 ML VIAL IV PRN (20:26)
[2019-10-29] MEDS ORDERED: ONDANSETRON 4 MG/2 ML VIAL IV PRN (20:26)
[2019-10-29] MEDS ORDERED: ONDANSETRON 4 MG ODT TABLET SL PRN (20:26)
[2019-10-29] MEDS ORDERED: POTASSIUM CHLORIDE 20 MEQ PACKET PO PRN (20:26)
[2019-10-29] MEDS ORDERED: MELATONIN 3 MG TABLET PO PRN (20:26)
[2019-10-29] MEDS ORDERED: hydrALAZINE 20 MG/ML VIAL IV PRN (20:26)
[2019-10-29] MEDS ORDERED: MAGNESIUM SULFATE 2 GM/50 ML BAG IV PRN (20:26)
[2019-10-29] MEDS ORDERED: ACETAMINOPHEN 650 MG/65 ML BOTTLE IV PRN (20:26)
[2019-10-29] MEDS ORDERED: POLYETHYLENE GLYCOL 3350 17 GM PACKET PO PRN (20:26)
[2019-10-29] MEDS: 0.9 % SODIUM CHLORIDE 1,000 ML IV SCH (20:33)
[2019-10-29] MEDS: 0.9 % SODIUM CHLORIDE 10 ML SYRINGE IV SCH (22:19)
[2019-10-29] MEDS: SENNOSIDES/DOCUSATE SODIUM 1 TAB TABLET PO SCH (22:19)
[2019-10-29] MEDS: DOCUSATE SODIUM 100 MG CAPSULE PO SCH (22:19)
[2019-10-29] MEDS: INSULIN LISPRO 1 UNIT/0.01 ML UNIT SQ SCH (22:27)
--- NOTE | 2019-10-30 02:28 | Ultrasound Report ---
CLINICAL INFORMATION: arf COMPARISON: Abdomen CT 09/11/2005 FINDINGS: Both kidneys are normal in size position and configuration: The right is 9.8 x 4 cm and the left is 9 x 4 cm. Echotexture is elevated bilaterally compatible with medical renal disease. Scattered cysts in both kidneys ranging up to 2.8 cm in the superior left kidney are unchanged. No stone, hydronephrosis or solid lesion. Arterial blood flow is grossly normal on color Doppler to both kidneys. Urinary bladder volume is 131 cc without post void residual. No focal bladder lesions Prostate volume normal dose 15 cc IMPRESSION: Mildly hyperechoic kidneys compatible with medical renal disease Interpreted and Authenticated by: Dony Reagan 10/30/19
[2019-10-30] MEDS: 0.9 % SODIUM CHLORIDE 10 ML SYRINGE IV SCH ×3 (05:50→22:04)
[2019-10-30 06:42] LABS: Hematocrit 30.4 % (40.1-51.0); Hemoglobin 10.4 g/dL (13.7-17.5); Mean Cell Volume 96.8 fL (80.0-100.0); Mean Corpuscular HGB Conc 34.2 g/dL (31.0-36.0); Mean Platelet Volume 9.6 fL (7.4-10.4); Platelet Count 179 K/mcL (140-440); RBC 3.14 M/mcL (4.63-6.08); Red Cell Distribution Width 11.7 % (11.5-14.5)
[2019-10-30 06:50] LABS: ALT/SGPT 31 U/l (0-40); AST/SGOT 22 U/l (0-37); Albumin 3.4 gm/dL (3.2-5.2); Albumin/Globulin Ratio 1.4 (1.0-2.3); Alkaline Phosphatase 75 U/L (39-117); Bilirubin,Direct < 0.2 mg/dL (0.0-0.3); Bilirubin,Total 0.3 mg/dL (0.0-1.0); Blood Urea Nitrogen 32 mg/dl (8-23); Calcium 8.6 mg/dl (8.6-10.4); Carbon Dioxide 20 mmol/L (22-30); Chloride 108 mmol/L (96-108); Globulin 2.4 gm/dL (2.2-3.7); Glomerular Filtration Rate 38; Glucose 120 mg/dL (70-105); Lactate Dehydrogenase 169 U/L (94-250); Phosphorous 3.6 mg/dL (2.7-4.5); Triglycerides 85 mg/dl (<150); Uric Acid 6.4 mg/dL (2.5-8.0)
[2019-10-30 07:49] LABS: Lymphocytes % 36 % (15-49); Monocytes % (Manual) 10 % (1-12); Platelet Estimate NORMAL (NORMAL); RBC Morphology NORMAL (NORMAL); Segmented Neutrophils % 54 % (38-78)
[2019-10-30] MEDS: INSULIN LISPRO 1 UNIT/0.01 ML UNIT SQ SCH ×7 (07:56→21:46)
[2019-10-30] MEDS: DOCUSATE SODIUM 100 MG CAPSULE PO SCH ×2 (08:14→21:45)
[2019-10-30] MEDS ORDERED: BISACODYL 5 MG TABLET PO PRN (08:26)
[2019-10-30] MEDS ORDERED: HYDROcodone/APAP 5/325MG TABLET PO PRN (08:26)
[2019-10-30] MEDS ORDERED: traMADol 50 MG TABLET PO PRN (08:26)
[2019-10-30] MEDS ORDERED: SENNOSIDES DOCUSATE SODIUM PO PRN (08:26)
[2019-10-30] MEDS ORDERED: NON FORMULARY MEDICATION 1 DOSE MISCELL (Multivitamin 1 TAB) PO SCH (09:00)
[2019-10-30] MEDS ORDERED: NON FORMULARY MEDICATION 1 DOSE MISCELL (Insulin Glargine [Lantus Solostar U-100 Insulin] SUB-Q SCH (09:00)
--- NOTE | 2019-10-30 09:16 | Internal Med Progress Note ---
SUBJECTIVE Subjective Patient information: Note initiated : 10/30/19 at 9:14 am Service Date, if different from initiated Date: [] Patient: Goyo Roac 89 y/o M admitted on 10/29/19 for High blood sugar, 261 at 1400. Chief Complaint: History of present illness: Mr. Roca is a 89 year old M with a history of DM type II/ischemic cardiomyopathy/CKD stage II who presents to the ER due to elev ated blood sugars and diarrhea. Work-up was consistent with elevated creatinine at 2. Patient received crystalloids. Blood sugars improved after patient self-administered insulin. Hospital service was consulted for admission in light of acute renal failure. Renal ultrasound was ordered, UA pending At the time evaluation patient is alert and oriented. His sick contacts of leg symptoms. Denies NSAID intake. Endorses history as above. Denies chest pain, palpitation, shortness of breath fever chills or headache. 10/29-patient doing well. Slept well overnight. No diarrhea. No fever chills. Creatinine down to 1.6. No additional concerns expressed with nursing staff. Constitutional Vitals: Vital Signs Temp Pulse Resp BP Pulse Ox 98.9 F 62 18 149/75 99 10/30/19 07:17 10/30/19 07:17 10/30/19 07:17 10/30/19 07:17 10/30/19 07:55 Period Temp Pulse Resp BP Sys/Franks Pulse Ox Last 24 Hr 97.5 F-98.9 F 62-84 16-20 79-149/53-75 97-99 Intake and Output 10/29/19 10/30/19 10/30/19 21:59 05:59 13:59 Intake Total 1500 360 Balance 1500 360 Weight 64.467 kg alert and oriented No anxiety Nonlabored breathing Intake & Output: Intake & Output 10/29/19 10/30/19 10/30/19 21:59 05:59 13:59 Intake Total 1500 360 Balance 1500 360 Weight 64.467 kg Intake: IV 1500 Sodium Chloride 0.9% 1,000 ml @ 1000 Wide Open IV BOLUS ONE Rx#: [id number] Sodium Chloride 0.9% 500 ml @ 500 Wide Open IV BOLUS ONE Rx#: [id number] Oral 360 Other: Meal Breakfast Percent of Meal Consumed 100% Feeding Ability Independent # Voids 3 OBJ DATA Labs CBC & Chem 7: 10/30/19 05:25 10/30/19 05:25 Labs: Abnormal Lab Results 10/30/19 10/30/19 10/29/19 05:25 05:25 15:53 RBC 3.14 L Hgb 10.4 L Hct 30.4 L [place] % (Auto) Sodium 132 L Carbon Dioxide 20 L 19 L BUN 32 H 37 H Creatinine 1.6 H 2.0 H Glucose 120 H 174 H Total Protein 5.8 L 10/29/19 15:53 RBC 3.69 L Hgb 11.9 L Hct 35.3 L [place] % (Auto) 12.2 H Sodium Carbon Dioxide BUN Creatinine Glucose Total Protein Meds: Medications Acetaminophen (Tylenol) 650 mg PO Q4-6HP PRN; Protocol PRN Reason: Per Pain Protocol/Fever > 101 Hydrocodone Bitart/Acetaminophen ([place] 5/325mg) 1 tab PO BID PRN; Protocol PRN Reason: pain Lipase/Protease/Amylase (Creon) 1 cap PO TIDCC [facility] Apixaban (Eliquis) 5 mg PO BID [facility] Aspirin (Aspirin) 81 mg PO DAILY [facility] Bisacodyl (Dulcolax) 10 mg DE Q2-3DAYS PRN PRN Reason: Constipation Bisacodyl (Dulcolax) 5 mg PO QHS PRN PRN Reason: Constipation Carvedilol (Coreg) 6.25 mg PO BIDCC [facility] Dextrose (Dextrose 50%) 0 ml IV UD PRN PRN Reason: Hypoglycemia Diagnostic Test (Pha) (Accu-Chek) 1 each FS ACHS [facility] Last Admin: 10/30/19 07:51 Dose: 1 each Documented by: Docusate Sodium (Colace) 100 mg PO BID [facility] Last Admin: 10/30/19 08:14 Dose: Not Given Documented by: Ferrous Sulfate (Ferrous Sulfate) 325 mg PO QAMCC [facility] Fluoxetine HCl (Prozac) 40 mg PO QHS [facility] Furosemide (Lasix) 10 mg PO DAILY [facility] Glucose (Insta-Glucose) 15 gm PO PRN PRN PRN Reason: Hypoglycemia Hydralazine HCl (Apresoline) 20 mg IV Q4-6HP PRN PRN Reason: Hypertension Sodium Chloride (Sodium Chloride 0.9%) 1,000 mls @ 50 mls/hr IV .Q20H [facility] Stop: 11/01/19 08:25 Last Admin: 10/29/19 20:33 Dose: 50 mls/hr Documented by: Acetaminophen (Ofirmev) 650 mg in 65 mls @ 130 mls/hr IV Q6HP PRN; Protocol PRN Reason: Per Pain Protocol/Fever > 101 Magnesium Sulfate (Magnesium Sulfate) 2 gm in 50 mls @ 50 mls/hr IV UD PRN PRN Reason: MG = or < 1.7 Insulin Glargine (Lantus) 0 unit SQ QDAY [facility] Insulin Human Lispro (Humalog) 0 unit SQ ACHS [facility]; Protocol Last Admin: 10/30/19 07:56 Dose: Not Given Documented by: Insulin Human Lispro (Humalog) 4 unit SQ ACHS [facility] Iron Carb/Multivit/Camp[employer]/Folic Acid (Multivitamin W/Minerals) 1 tab PO DAILY [facility] Levothyroxine Sodium (Synthroid) 50 mcg PO QAMAC [facility] Lisinopril (Zestril) 10 mg PO DAILY [facility] Melatonin (Melatonin 3mg Tablet) 3 mg PO HSP PRN PRN Reason: Insomnia Non-Formulary Medication (Insulin Glargine [Lantus Solostar U-100 Insulin]) 7 unit SUB-Q BID [facility] Non-Formulary Medication (Multivitamin) 1 tab PO QDAY [facility] Omeprazole (Prilosec) 20 mg PO ACB [facility] Ondansetron HCl (Zofran Odt) 4 mg SL Q4-6HP PRN; Protocol PRN Reason: Nausea And Vomiting Ondansetron HCl (Zofran) 4 mg IV Q4-6HP PRN; Protocol PRN Reason: Nausea And Vomiting Polyethylene Glycol (Miralax) 17 gm PO DAILYP PRN PRN Reason: Constipation Potassium Chloride (Klor-Con) 40 meq PO DAILYP PRN PRN Reason: K+ < 3.5 Senna/Docusate Sodium (Senna Plus Tablet) 1 tab PO HS [facility] Last Admin: 10/29/19 22:19 Dose: Not Given Documented by: Simvastatin (Zocor) 5 mg PO HS [facility] Sodium Chloride (Saline Flush) 10 ml IV Q8 [facility] Last Admin: 10/30/19 05:50 Dose: Not Given Documented by: Spironolactone (Aldactone) 12.5 mg PO DAILY [facility] Tramadol HCl (Ultram) 0 mg PO .COMPLEX PRN PRN Reason: Pain Vitamin D (Vitamin D3) 2,000 unit PO DAILY [facility] A/P Narrative A/P Narrative: * Acute renal failure likely secondary to volume depletion/prerenal. Creatinine down from 2-1.6. Continue crystalloids and monitor renal function. Avoid nephrotoxins. Renal ultrasound no evidence of obstructive uropathy * Diarrhea-improving with crystalloid/supportive management * History of DM type II continue basal prandial insulin/CCD * Ischemic cardiomyopathy continue Coreg/aspirin/statin * Anxiety disorder continue fluoxetine * Neuropathy continue gabapentin * GERD continue PPI * hypothyroidism continue thyroxine * Chronic pain on hydrocodone/tramadol * Prophylaxis on anticoagulation Plan * Continue crystalloid/supportive management * PT OT/nutrition support * Pre-existing medical condition management as above * Discharge likely in 24 hours Full code Time Spent With Patient Time: Total time spent is greater than 50% in coordination of care (as documented) at patient's floor/unit and/or counseling patient: QUALITY Stroke Symptom Onset Unknown: No VTE Deep Vein Thrombosis/Pulmonary Embolism Present on Admission: No
[2019-10-30] MEDS: MULTIVIT,THER IRON,CA,FA & MIN 1 TABLET PO SCH (09:28)
[2019-10-30] MEDS: FERROUS SULFATE 325 MG TABLET PO SCH (09:28)
[2019-10-30] MEDS: VITAMIN D3 1,000 UNIT TABLET PO SCH (09:29)
[2019-10-30] MEDS: LISINOPRIL 10 MG TABLET PO SCH (09:31)
[2019-10-30] MEDS: SPIRONOLACTONE 25 MG TABLET PO SCH (09:31)
[2019-10-30] MEDS: APIXABAN 5 MG TABLET PO SCH ×2 (09:32→21:43)
[2019-10-30] MEDS: LEVOTHYROXINE 50 MCG TABLET PO SCH (09:33)
[2019-10-30] MEDS: CARVEDILOL 6.25 MG TABLET PO SCH ×2 (09:34→18:06)
[2019-10-30] MEDS: FUROSEMIDE 20 MG TABLET PO SCH (09:34)
[2019-10-30] MEDS: LIPASE/PROTEASE/AMYLASE 1 CAP CAPSULE PO SCH ×2 (12:09→18:06)
[2019-10-30] MEDS: 0.9 % SODIUM CHLORIDE 1,000 ML IV SCH (17:43)
[2019-10-30] MEDS ORDERED: SIMVASTATIN 10 MG TABLET PO SCH (21:00)
[2019-10-30] MEDS ORDERED: FLUoxetine HCL 20 MG CAPSULE PO SCH (21:00)
[2019-10-30] MEDS: INSULIN GLARGINE, HUMAN 1 UNIT/0.01 ML SQ SCH (21:42)
[2019-10-30] MEDS: SENNOSIDES/DOCUSATE SODIUM 1 TAB TABLET PO SCH (21:46)
[2019-10-31] MEDS: 0.9 % SODIUM CHLORIDE 10 ML SYRINGE IV SCH ×2 (05:11→14:18)
[2019-10-31 06:52] LABS: Hematocrit 32.6 % (40.1-51.0); Hemoglobin 10.9 g/dL (13.7-17.5); Mean Cell Volume 97.9 fL (80.0-100.0); Mean Corpuscular HGB Conc 33.4 g/dL (31.0-36.0); Mean Platelet Volume 9.9 fL (7.4-10.4); Platelet Count 179 K/mcL (140-440); RBC 3.33 M/mcL (4.63-6.08); Red Cell Distribution Width 11.7 % (11.5-14.5); WBC 5.7 K/mcL (4.50-11.00)
[2019-10-31 07:10] LABS: ALT/SGPT 30 U/l (0-40); AST/SGOT 22 U/l (0-37); Albumin 3.6 gm/dL (3.2-5.2); Albumin/Globulin Ratio 1.4 (1.0-2.3); Alkaline Phosphatase 80 U/L (39-117); Bilirubin,Direct < 0.2 mg/dL (0.0-0.3); Bilirubin,Total 0.2 mg/dL (0.0-1.0); Blood Urea Nitrogen 26 mg/dl (8-23); Carbon Dioxide 20 mmol/L (22-30); Chloride 108 mmol/L (96-108); Globulin 2.5 gm/dL (2.2-3.7); Glomerular Filtration Rate 44; Glucose 132 mg/dL (70-105); Lactate Dehydrogenase 202 U/L (94-250); Phosphorous 2.8 mg/dL (2.7-4.5); Triglycerides 102 mg/dl (<150); Uric Acid 5.6 mg/dL (2.5-8.0)
[2019-10-31] MEDS ORDERED: OMEPRAZOLE 20 MG CAPSULE PO SCH (07:30)
[2019-10-31] MEDS: INSULIN LISPRO 1 UNIT/0.01 ML UNIT SQ SCH ×4 (07:43→12:08)
[2019-10-31] MEDS: LEVOTHYROXINE 50 MCG TABLET PO SCH (07:44)
[2019-10-31] MEDS: CARVEDILOL 6.25 MG TABLET PO SCH (07:46)
[2019-10-31] MEDS: FERROUS SULFATE 325 MG TABLET PO SCH (07:46)
[2019-10-31] MEDS: LIPASE/PROTEASE/AMYLASE 1 CAP CAPSULE PO SCH ×2 (07:47→12:10)
[2019-10-31 08:14] LABS: Eosinophils % (Manual) 1 % (0-7); Lymphocytes % 36 % (15-49); Monocytes % (Manual) 9 % (1-12); Platelet Estimate NORMAL (NORMAL); RBC Morphology NORMAL (NORMAL); Segmented Neutrophils % 54 % (38-78)
[2019-10-31] MEDS: SPIRONOLACTONE 25 MG TABLET PO SCH (08:18)
[2019-10-31] MEDS: APIXABAN 5 MG TABLET PO SCH (08:20)
[2019-10-31] MEDS: DOCUSATE SODIUM 100 MG CAPSULE PO SCH (08:20)
[2019-10-31] MEDS: MULTIVIT,THER IRON,CA,FA & MIN 1 TABLET PO SCH (08:21)
[2019-10-31] MEDS: FUROSEMIDE 20 MG TABLET PO SCH (08:21)
[2019-10-31] MEDS: LISINOPRIL 10 MG TABLET PO SCH (08:22)
[2019-10-31] MEDS: VITAMIN D3 1,000 UNIT TABLET PO SCH (08:22)
[2019-10-31] MEDS: INSULIN GLARGINE, HUMAN 1 UNIT/0.01 ML SQ SCH (08:24)
--- NOTE | 2019-10-31 08:38 | XRay Report ---
CLINICAL INFORMATION: Shortness of breath COMPARISON: 10/26/2019 FINDINGS: Heart size is normal for technique. Sternotomy changes noted. Mediastinum and pulmonary vessels are normal. The lungs are clear. No effusions. IMPRESSION: Negative Interpreted and Authenticated by: Dony Reagan 10/31/19
[2019-10-31] MEDS ORDERED: ASPIRIN 81 MG TAB.CHEW PO SCH (09:00)
--- NOTE | 2019-10-31 12:22 | Discharge Summary ---
Discharge Provider Provider Patient information: Note initiated : 10/31/19 at 12:20 pm Service Date, if different from initiated Date: [] Patient: Goyo Roca 89 y/o M admitted on 10/29/19 for High blood sugar, 261 at 1400. Discharge diagnosis * Acute renal failure secondary to volume depletion/prerenal. Creatinine down from 2->1.4. Discharging today with advised to continue adequate hydration. Renal ultrasound no evidence of obstructive uropathy * Diarrhea-resolved with crystalloid/supportive management * History of DM type II continue basal prandial insulin/CCD * Ischemic cardiomyopathy continue Coreg/aspirin/statin * Anxiety disorder continue fluoxetine * Neuropathy continue gabapentin * GERD continue PPI * hypothyroidism continue thyroxine * Chronic pain on hydrocodone/tramadol Brief hospital course History of present illness: Mr. Roca is a 89 year old M with a history of DM type II/ischemic cardiomyopathy/CKD stage II who presents to the ER due to elevated blood sugars and diarrhea. Work-up was consistent with elevated c reatinine at 2. Patient received crystalloids. Blood sugars improved after patient self-administered insulin. Hospital service was consulted for admission in light of acute renal failure. Renal ultrasound was ordered, UA pending At the time evaluation patient is alert and oriented. His sick contacts of leg symptoms. Denies NSAID intake. Endorses history as above. Denies chest pain, palpitation, shortness of breath fever chills or headache. 10/29-patient doing well. Slept well overnight. No diarrhea. No fever chills. Creatinine down to 1.6. No additional concerns expressed with nursing staff. 10/30-patient doing well. Improved creatinine to 1.4 with continue hydration. Advised to stay hydrated. Discharging home. Discharge instructions below. Date of admission: 10/29/19 19:23 Discharge date: 10/31/19 Primary care physician: Jn Guzman Consults: 10/29/19 Consult to Physician [CONS] Stat Comment: Consulting Provider: Asa Rice Reason For Exam: Physician to Consult Discharge Meds Discharge Medications Home Medications cholecalciferol (vitamin D3) 25 mcg (1,000 unit) tablet 2,000 unit PO DAILY tab 09/03/14 [History Confirmed 10/29/19 Last Taken 06/19/17 07:00] ferrous sulfate 325 mg (65 mg iron) capsule,extended release 45 mg PO DAILY cap 09/03/14 [History Confirmed 10/29/19 Last Taken 06/19/17 07:00] multivitamin 1 tab PO QDAY tab 09/03/14 [History Confirmed 10/29/19 Last Taken 06/19/17 07:00] bisacodyl 5 mg tablet,delayed release 5 mg PO QHS PRN 03/04/15 [History Co nfirmed 10/29/19 Last Taken 06/19/17 20:00] sennosides-docusate sodium 1 each PO DAILYP PRN 11/27/15 [History Confirmed 10/29/19 Last Taken 06/19/17 07:00] aspirin 81 mg tablet,delayed release 81 mg PO QDAY 03/06/17 [History Confirmed 10/29/19 Last Taken 10/29/19 0900] levothyroxine 50 mcg tablet 50 mcg PO QDAY #90 tab 08/13/17 [Rx Confirmed 10/29/19 Last Taken Unknown] insulin glargine 100 unit/mL subcutaneous solution See Rx Instructions SUB-Q QDAY #10 ml 09/12/17 [Rx Confirmed 10/29/19 Last Taken Unknown] blood-glucose meter #1 each 10/01/17 [Rx Confirmed 10/29/19 Last Taken Unknown] pravastatin 10 mg tablet 10 mg PO QDAY #90 tab 10/21/17 [Rx Confirmed 10/29/19 Last Taken Unknown] insulin lispro 100 unit/mL subcutaneous solution 4 unit SUB-Q ACHS #300 unit 11/11/17 [Rx Confirmed 10/29/19 Last Taken Unknown] hydrocodone 5 mg-acetaminophen 325 mg tablet 1 tab PO BID PRN #60 tab 11/15/17 [Rx Confirmed 10/29/19 Last Taken Unknown] omeprazole 20 mg PO ACB #30 cap 08/19/18 [Rx Confirmed 10/29/19 Last Taken Unknown] apixaban 5 mg tablet 5 mg PO BID tab 06/19/19 [History Confirmed 10/29/19 Last Taken Unknown] carvedilol 6.25 mg tablet 6.25 mg PO BID 06/19/19 [History Confirmed 10/29/19 Last Taken Unknown] tramadol 50 mg tablet See Rx Instructions .ROUTE .COMPLEX PRN tab 06/19/19 [History Confirmed 10/29/19 Last Taken Unknown] Creon See Rx Instructions .ROUTE .COMPLEX 10/29/19 [History Confirmed 10/29/19 Last Taken Unknown] Lantus Solostar U-100 Insulin 7 unit SUBCUT BID 10/29/19 [History Confirmed 10/29/19 Last Taken Unknown] fluoxetine 40 mg PO QHS 10/29/19 [History Confirmed 10/29/19 Last Taken Unknown] furosemide 10 mg PO DAILY 10/29/19 [History Confirmed 10/29/19 Last Taken Unknown] insulin lispro [Humalog KwikPen Insulin] See Protocol SUBCUT ACHS 10/29/19 [History Confirmed 10/29/19 Last Taken Unknown] lisinopril 10 mg PO DAILY 10/29/19 [History Confirmed 10/29/19 Last Taken Unknown] spironolactone 12.5 mg PO DAILY 10/29/19 [History Confirmed 10/29/19 Last Taken Unknown] COURSE Hospital Course Hospital course: . Discharge diagnosis: . Time Spent with Patient Time attestation: Total time spent providing and/or coordinating discharge services: EXAM Constitutional Vitals: Temp Pulse Resp BP Pulse Ox 97.8 F 47 L 16 122/62 96 10/31/19 12:00 10/31/19 12:00 10/31/19 12:00 10/31/19 12:00 10/31/19 12:00 Discharge Data Data Completed and Pending Labs on day of discharge: Labs from last 24 hours 10/31/19 10/31/19 05:20 05:20 WBC 5.7 RBC 3.33 L Hgb 10.9 L Hct 32.6 L MCV 97.9 MCH 32.7 MCHC 33.4 RDW 11.7 Plt Count 179 MPV 9.9 Total Counted 100 Seg Neutrophils % 54 Band Neutrophils % Not Reportable Lymphocytes % 36 Monocytes % (Manual) 9 Eosinophils % (Manual) 1 Platelet Estimate Normal RBC Morphology Normal Sodium 138 Potassium 4.9 Chloride 108 Carbon Dioxide 20 L Anion Gap 10.0 BUN 26 H Creatinine 1.4 H GFR Calculation 44 Glucose 132 H Uric Acid 5.6 Calcium 9.0 Phosphorus 2.8 Magnesium 2.1 Total Bilirubin 0.2 Direct Bilirubin < 0.2 GGT 54 AST 22 ALT 30 Alkaline Phosphatase 80 Lactate Dehydrogenase 202 Total Protein 6.1 Albumin 3.6 Globulin 2.5 Albumin/Globulin Ratio 1.4 Triglycerides 102 Discharge Plan Patient/Caregiver Discharge Instructions Activity: ambulate only with your walker Diet: Regular Diet Activity Restrictions/Additional Instructions: Follow-up with PCP in 5 to 7 days Maintain adequate hydration with minimum 64 ounces of fluids a day Return to ER if weakness, diarrhea, lightheadedness dizziness noted Prescriptions: Continued levothyroxine 50 mcg tablet 50 mcg PO QDAY Qty: 90 RF: 1 (DME) blood-glucose meter [Freestyle [employer]] misc See Dose Instructions .ROUTE .MEDSUPPLY Qty: 1 RF: 0 pravastatin 10 mg tablet 10 mg PO QDAY Qty: 90 RF: 1 insulin lispro 100 unit/mL solution 4 unit SUB-Q ACHS Qty: 300 RF: 0 hydrocodone-acetaminophen 5-325 mg tablet 1 tab PO BID PRN (Reason: pain) Qty: 60 RF: 0 multivitamin tablet 1 tab PO QDAY RF: 0 cholecalciferol (vitamin D3) 1,000 unit tablet 2,000 unit PO DAILY RF: 0 ferrous sulfate 325 mg (65 mg iron) capsule, extended release 45 mg PO DAILY RF: 0 Eliquis 5 mg tablet 5 mg PO BID RF: 0 tramadol 50 mg tablet See Rx Instructions .ROUTE .COMPLEX PRN (Reason: Pain) RF: 0 carvedilol 6.25 mg tablet 6.25 mg PO BID RF: 0 bisacodyl 5 mg tablet,delayed release (DR/EC) 5 mg PO QHS PRN (Reason: Constipation) RF: 0 aspirin [Adult Low Dose Aspirin] 81 mg tablet,delayed release (DR/EC) 81 mg PO QDAY RF: 0 insulin glargine 100 unit/mL solution See Rx Instructions SUB-Q QDAY Qty: 10 RF: 1 sennosides-docusate sodium 1 EACH tablet 1 each PO DAILYP PRN (Reason: Constipation) RF: 0 omeprazole 20 MG capsule 20 mg PO ACB Qty: 30 RF: 0 fluoxetine 20 mg capsule 40 mg PO QHS RF: 0 Creon 3,000-9,500- 15,000 unit capsule,delayed release(DR/EC) See Rx Instructions .ROUTE .COMPLEX RF: 0 lisinopril 10 mg tablet 10 mg PO DAILY RF: 0 spironolactone 25 mg tablet 12.5 mg PO DAILY RF: 0 furosemide 20 mg tablet 10 mg PO DAILY RF: 0 Lantus Solostar U-100 Insulin 100 unit/mL (3 mL) insulin pen 7 unit SUBCUT BID RF: 0 insulin lispro [Humalog KwikPen Insulin] 100 unit/mL insulin pen See Protocol unit SUBCUT ACHS RF: 0 Follow Up Plan Follow up with: Jn Guzman MD [Primary Care Provider] - Patient Disposition: Home, Self-Care Rehab Potential: Fair I certify that the patient requires SNF services: No Overall status at discharge: patient is progressing back to baseline Discharge Orders: Discharge Order (Routine); Ordered 10/31/19 Ordered By: Asa AMADOR VTE Deep Vein Thrombosis/Pulmonary Embolism Present on Admission: No
[2019-10-31] MEDS: 0.9 % SODIUM CHLORIDE 1,000 ML IV SCH (14:41)
== END 2019-10-31 15:55 | disposition home or self-care (01) ==
LOC: ED 15:37 → MEDSUR 15:37
PROVIDERS: ADMIT Internal Medicine; ATTEND Internal Medicine